=== PATIENT | female | born 1995 | race Caucasian/White ===

== ENCOUNTER 2023-05-31 10:00 | Outpatient (REF) | payer BC, SELFPAY ==
--- NOTE | 2023-05-31 09:45 | PAPFT_PTH ---
PATIENT: LEAH BELTRAN LOC: [facility] U#:[id number] AGE/SX: 27/F ROOM: RE05/31/[address]: Arianna Jeffesron CNM : 1995 BED: DIS: 05/31/2023 SPEC #: [id number] RECD: 05/31/23 13:08 STATUS: GINNY REQ #: [id number] LUIS ALFREDO: 05/31/23 09:[address]: Arianna Jefferson DEPT: [facility] Cytology RECD BY: Mague Welch ENTERED: 05/31/23 13:09 SP TYPE: PAPFT OTHR DR: Unknown,Unknown Tissues: 1 - CX/ENDOCX FOR PAP SMEARS Procedures: PAP THIN PREP/[facility] Screening Comments: [id number] (CHLAMYDIA/GC)
[2023-06-01 15:58] LABS: Chlamydia Result Negative (Negative); GC Result Negative (Negative)
== END 2023-05-31 10:01 | disposition home or self-care (01) ==
LOC: LBN 10:00
PROVIDERS: Visit Provider Advanced Practice Midwife
DX: Z01.419 Encounter for gynecological examination (general) (routine) without abnormal findings (principal)
CPT/HCPCS: 87491; 87591; 88142; 87624